=== PATIENT | male | born 1965 | race Caucasian/White ===

== ENCOUNTER 2020-12-17 22:43 | Emergency (ER) | payer OTHER ==
[2020-12-18] MEDS ORDERED: BENADRYL 50MG C50 MG PO (02:48)
[2020-12-18] MEDS ORDERED: PREDNISONE 50 M50 MG PO (02:48)
== END 2020-12-18 02:59 | disposition home or self-care (01) ==
LOC: ER1 22:43
DX: M79.89 Other specified soft tissue disorders (principal); F17.210 Nicotine dependence, cigarettes, uncomplicated
CPT/HCPCS: 73130; 99283